=== PATIENT | female | born 1960 | race Caucasian/White ===

== ENCOUNTER 2020-01-23 09:59 | Day surgery (SDC) | payer OTHER ==
[~2020-01-23] VITALS: Ht 160 cm; Wt 88.9 kg
[~2020-01-23 09:59] MED LIST: ACTOS45 M1 PO; ASPIR 8181 MG PO; CLARITIN LIQUI-10 MG PO; GLIPIZIDE XL10 M1 PO; LOTENSIN20 MG PO; METFORMIN HCL1000 M2 PO; NATURE'S BLEND500 MG; STEGLATRO15 MG PO
[2020-01-23 10:13] VITALS: BP 128/72
[2020-01-23 19:38] VITALS: BP 121/75
[2020-01-23 19:44] VITALS: Ht 160 cm; Wt 88.9 kg
[2020-01-23 19:47] VITALS: BP 116/68
[2020-01-24 05:03] VITALS: BP 124/58
[2020-01-24 06:11] LABS: BASOPHIL % 0.3 % (0-2); PLATELET COUNT 161 x10^3mcL (130-400)
[2020-01-24 06:13] LABS: RED CELL DISTRIBUTION WIDTH 15.5 % (11.5-14.5)
[2020-01-24 06:45] LABS: CALCIUM 7.8 mg/dL (8.5-10.1); CARBON DIOXIDE 21.4 mmol/L (21-32); CHLORIDE SERUM 108 mmol/L (98-107); CREATININE SERUM 0.7 mg/dL (0.6-1.0); GFR1 > 60 mL/min; GLUCOSE SERUM 114 mg/dL (74-106); POTASSIUM SERUM 3.9 mmol/L (3.5-5.1); SODIUM SERUM 142 mmol/L (136-145)
[2020-01-24 08:39] VITALS: BP 119/64
[2020-01-24 13:00] VITALS: BP 102/54
[2020-01-24 13:11] VITALS: BP 119/64
== END 2020-01-24 15:25 | disposition home or self-care (01) ==
LOC: DS 09:59 → OR 13:30 → DS 13:30 → MU 17:53 → DS 01-24 15:25
PROVIDERS: Orthopaedic Surgery
DX: M16.31 Unilateral osteoarthritis resulting from hip dysplasia, right hip (principal); E11.9 Type 2 diabetes mellitus without complications; I10 Essential (primary) hypertension; E66.9 Obesity, unspecified; Z79.84 Long term (current) use of oral hypoglycemic drugs; Z79.899 Other long term (current) drug therapy; Z79.82 Long term (current) use of aspirin; Z68.31 Body mass index [BMI] 31.0-31.9, adult
CPT/HCPCS: 82962; 97110-GP; 97116-GP; C1713; C1776; G0378; J0690; J1885; J2250; J2270; J2405; J2704; J3010; J3490; J7030; J7120; Q0092